=== PATIENT | female | born 1980 | race Caucasian/White ===

== ENCOUNTER 2020-02-06 06:55 | Inpatient (IN) | payer OTHER ==
[~2020-02-06] VITALS: Ht 170.2 cm; Wt 79.4 kg
[~2020-02-06 06:55] MED LIST: DEXILANT30 MG; DICLOFENAC POTA50 MG PO; METFORMIN HCL500 MG; TRAM1TAB98 PO
== END 2020-02-09 14:33 | disposition home or self-care (01) | DRG 738 ==
LOC: ER 06:55 → MEDJ 09:31 → SEC-K 09:31 → MEDJ 13:30 → SURG 02-07 13:25 → SURH 02-07 14:32
PROVIDERS: Obstetrics & Gynecology Gynecologic Oncology; ADMIT Internal Medicine; ATTEND Internal Medicine
PROC: 07BC4ZX Excision of Pelvis Lymphatic, Percutaneous Endoscopic Approach, Diagnostic (ICD-10-PCS; 2020-02-07)
PROC: 0DBU4ZZ Excision of Omentum, Percutaneous Endoscopic Approach (ICD-10-PCS; 2020-02-07)
PROC: 0UB04ZZ Excision of Right Ovary, Percutaneous Endoscopic Approach (ICD-10-PCS; principal; 2020-02-07 10:15)
DX: C56.1 Malignant neoplasm of right ovary (principal); N70.11 Chronic salpingitis; D64.9 Anemia, unspecified; G47.33 Obstructive sleep apnea (adult) (pediatric); I34.1 Nonrheumatic mitral (valve) prolapse; Z20.828 Contact with and (suspected) exposure to other viral communicable diseases

== ENCOUNTER 2020-09-12 06:00 | Day surgery (SDC) | payer OTHER | END 2020-09-12 09:50 | disposition home or self-care (01) | LOC: AMB-ENDOS 06:00 | PROVIDERS: ATTEND Colon & Rectal Surgery | DX: K62.89 Other specified diseases of anus and rectum (principal); K64.0 First degree hemorrhoids; Z20.822 Contact with and (suspected) exposure to COVID-19 ==

== ENCOUNTER → 2020-12-06 | Emergency (ER) | payer OTHER ==
[~2020-12-06] VITALS: Ht 170.2 cm; Wt 81.6 kg
[~2020-12-06] MED LIST changes: +KETO10TA2 PO; +NORFLEX100MG PO
== END | disposition home or self-care (01) ==
LOC: ER 15:46
DX: M54.2 Cervicalgia (principal)

== ENCOUNTER 2021-06-23 18:51 | Emergency (ER) | payer OTHER ==
[~2021-06-23] VITALS: Ht 170.2 cm; Wt 82.1 kg
[2021-07-02] MEDS ORDERED: PRENATABS RX T1 EACH PO (08:29)
== END 2021-06-23 22:44 | disposition home or self-care (01) ==
LOC: ER 18:51
DX: O20.9 Hemorrhage in early pregnancy, unspecified (principal); Z3A.01 Less than 8 weeks gestation of pregnancy

== ENCOUNTER 2021-07-02 09:25 | Day surgery (SDC) | payer OTHER ==
[~2021-07-02] VITALS: Ht 170.2 cm; Wt 83.1 kg
[~2021-07-02 09:25] MED LIST changes: +PRENATABS RX T1 EACH PO
[2021-07-02] MEDS ORDERED: MORGIDOX100 MG PO (15:25)
[2021-07-02] MEDS ORDERED: IBU600 MG PO (15:26)
== END 2021-07-02 17:50 | disposition home or self-care (01) ==
LOC: CIR.AMB 09:25
PROVIDERS: ATTEND Obstetrics & Gynecology
DX: O02.1 Missed abortion (principal); Z20.822 Contact with and (suspected) exposure to COVID-19

== ENCOUNTER 2021-07-21 17:28 | Emergency (ER) | payer OTHER ==
[~2021-07-21] VITALS: Ht 170.2 cm; Wt 83.0 kg
[~2021-07-21 17:28] MED LIST changes: +IBU600 MG PO; +MORGIDOX100 MG PO
== END 2021-07-21 22:43 | disposition home or self-care (01) ==
LOC: ER 17:28
DX: M79.18 Myalgia, other site (principal)